=== PATIENT | male | born 1970 | race Caucasian/White ===

== ENCOUNTER → 2020-04-27 | Outpatient (CLI) | payer OTHER, SELFPAY ==
[2020-03-13 11:03] VITALS: BMI 27.1
--- NOTE | 2020-04-27 10:51 | ECHOD_ITS ---
Reason For Study: CHEST PAIN Procedure This was a 2D Doppler, Color Flow transthoracic echocardiogram. The exam was of adequate technical quality. Exam performed in department. Left Ventricle Normal LV size. Left ventricular systolic function is normal. The estimated ejection fraction is 65 %. No evidence for diastolic dysfunction. No regional wall motion abnormalities noted. Right Ventricle Normal RV size. Normal systolic function. Atria Normal left atrium. Normal right atrium. No doppler evidence for ASD. Mitral Valve There is no mitral annular calcification. Normal mitral valve. Trivial mitral valve insufficiency. Tricuspid Valve Normal tricuspid valve. Trivial tricuspid valve insufficiency. Right ventricular systolic pressure estimated to be 29 mmHg. Aortic Valve Trisinus/trileaflet aortic valve. Mild focal aortic valve calcification. Pulmonic Valve The pulmonic valve is not well visualized. Great Vessels Normal sized aortic root. Pericardium/Pleural No pericardial effusion. MMode/2D Measurements & Calculations LVIDd: 3.9 cm IVSd: 1.2 cm Ao root diam: 3.0 cm LVIDs: 2.7 cm LVPWd: 0.90 cm RVDd: 3.6 cm FS: 30.9 % LAV(MOD-bp): 42.5 ml LVAd ap4: 29.6 cm2 SV(MOD-sp4): 52.0 ml LAV(MOD-bp) Indexed: 20.4 ml/m2 EDV(MOD-sp4): 84.4 ml LAV(MOD-sp2): 47.3 ml EDV(sp4-el): 86.8 ml LAV(MOD-sp4): 34.8 ml LVAs ap4: 16.0 cm2 ESV(MOD-sp4): 32.4 ml ESV(sp4-el): 31.2 ml EF(MOD-sp4): 61.6 % EF(sp4-el): 64.1 % SV(sp4-el): 55.7 ml LA A4 area: 15.0 cm2 LA dimension(2D): 3.6 cm RA A4 area: 14.4 cm2 Time Measurements MV dec time: 0.16 sec Doppler Measurements & Calculations MV E max santos: 97.9 cm/sec Lat Peak E' Santos: 14.7 cm/sec Med Peak E' Santos: 10.0 cm/sec MV A max santos: 83.5 cm/sec E/E' lat: 6.7 E/E' med: 9.8 MV E/A: 1.2 Ao V2 max: 148.0 cm/sec LV V1 max: 118.6 cm/sec PA V2 max: 126.3 cm/sec Ao max P.8 mmHg LV V1 max P.6 mmHg TR max santos: 252.9 cm/sec TR max P.6 mmHg Interpretation Summary Left ventricular systolic function is normal. The estimated ejection fraction is 65 %. Trivial mitral valve insufficiency. Trivial tricuspid valve insufficiency. Mild focal aortic valve calcification. Right ventricular systolic pressure estimated to be 29 mmHg. No evidence for diastolic dysfunction. Ordering Physician: Dario Alberto Referring Physician: PAULINE ALTAMIRANO Performed By: Jessenia Christine RDCS
--- NOTE | 2020-04-27 17:29 | STRESSREP ---
Stress Test Report Date: 04-27-2020 Procedure: Exercise tolerance test Indications: Chest pain Consent: Per the patient Procedure: The patient exercised on a Mc protocol for 10 minutes completing stage III and 1 minute of stage IV achieving a peak heart rate of 166 bpm (97 % predicted maximal heart rate) with a peak blood pressure 154/100 mmHg and a peak MET capacity of approximately 11 mET's. The baseline ECG demonstrated normal sinus rhythm. The peak exercise ECG demonstrated no obvious ECG changes. There were no cardiac dysrhythmias pretest, during exercise, or recovery. The functional capacity was considered good. The patient had no complaint of chest discomfort during exercise or recovery. The examination was discontinued secondary to leg discomfort. Impression: 1. Technically adequate (percent predicted maximal heart rate greater than 85%) exercise tolerance test 2. Peak exercise ECG with with no obvious ECG changes 3. There were no cardiac dysrhythmias during exercise or recovery This note was generated with Rently[employer]ation software. It may contain incorrect words, spelling, and punctuation that were not noted in checking the note before signing.
== END | disposition home or self-care (01) ==
LOC: CVS 10:50
PROVIDERS: PCP Nurse Practitioner Family; Referring Provider Internal Medicine Cardiovascular Disease; Visit Provider Internal Medicine Cardiovascular Disease
DX: R07.9 Chest pain, unspecified (principal); R06.00 Dyspnea, unspecified; E78.1 Pure hyperglyceridemia; I10 Essential (primary) hypertension
CPT/HCPCS: 93017; 93306

== ENCOUNTER → 2023-01-16 | Outpatient (CLI) | payer OTHER, SELFPAY ==
--- NOTE | 2023-01-16 10:49 | RAD_ITS ---
STUDY: X-RAY - ABDOMEN/PELVIS REASON FOR EXAM: Male, 52 years old. Left lower quadrant pain. TECHNIQUE: AP supine and upright views of the abdomen and pelvis. COMPARISON: None. FINDINGS: Normal visualized lung bases. There is an unremarkable bowel gas pattern. There is no demonstrated free abdominal air. The visualized liver, spleen and kidneys are grossly normal in size and morphology. 4 mm in diameter calcification projected over the pelvis at approximately the left ureterovesical junction which may represent a ureteral calculus. Phleboliths. Normal visualized osseous structures. RAD/Abd Inc Decub and/or Erect IMPRESSION: 4 mm in diameter probable left distal ureteral calculus. No other abnormality. Electronically Signed: Humza Sauceda, at 13:07 EST ,
[2023-01-17 06:08] LABS: HEPATITIS B SURFACE AG Negative (Negative); Hep C Antibodies Non Reactive (Non Reactive); Hepatitis A IgM Antibody Negative (Negative); Hepatitis B Core AB IgM Negative (Negative)
== END | disposition home or self-care (01) ==
LOC: LAB 10:38
PROVIDERS: PCP Nurse Practitioner Family; Referring Provider Nurse Practitioner Family; Visit Provider Nurse Practitioner Family
DX: R10.32 Left lower quadrant pain (principal); R74.8 Abnormal levels of other serum enzymes
CPT/HCPCS: 36415; 74019; 80074

== ENCOUNTER → 2023-02-13 | Outpatient (CLI) | payer OTHER, SELFPAY ==
--- NOTE | 2023-02-13 07:54 | CT_ITS ---
STUDY: CT ABDOMEN AND PELVIS WITHOUT CONTRAST REASON FOR EXAM: Male, 52 years old. LUQ pain x months, left ureteral stone? RADIATION DOSAGE (If Supplied By Facility): CTDIvol = ( 9.57 ) mGy, DLP = ( 523.65 ) mGycm TECHNIQUE: Transaxial images were obtained from the dome of the diaphragm to the symphysis pubis without oral contrast, and without intravenous contrast. Sagittal and coronal images were reconstructed. Individualized dose optimization techniques were used for this CT. COMPARISON: None. FINDINGS: The visualized lung bases are unremarkable. The visualized portions of the heart are within normal limits. Normal liver. Normal gallbladder and extrahepatic biliary system. Normal spleen. Normal pancreas. Normal bilateral adrenal glands. Normal right kidney. Minimal degree of left hydronephrosis. There is a 4.5 mm calculus in the distal portion of the left ureter just proximal to the ureterovesical junction. There is a small hiatal hernia. Normal small intestine. There are scattered colonic diverticula consistent with diverticulosis. The appendix is visualized and appears normal. Normal abdominal aorta. Normal inferior vena cava. Normal retroperitoneum. Normal urinary bladder. Normal abdominal wall. Normal osseous structures. CT/Abdomen/Pelvis without Cont IMPRESSION: 4.5 mm calculus in the distal portion of the left ureter just proximal to the ureteral vesicle junction. Minimal degree of left hydronephrosis. Sigmoid diverticulosis. Electronically Signed: Maksim Valenzuela MD at 14:47 EDT ,
== END | disposition home or self-care (01) ==
LOC: CT 07:53
PROVIDERS: PCP Nurse Practitioner Family; Referring Provider Nurse Practitioner Adult Health; Visit Provider Nurse Practitioner Adult Health
DX: R10.12 Left upper quadrant pain (principal); N20.1 Calculus of ureter
CPT/HCPCS: 74176

== ENCOUNTER 2023-07-24 05:19 | Day surgery (SDC) | payer OTHER, SELFPAY ==
[2023-07-24] VITALS (7 sets, daily range): BP systolic 87–117; BP diastolic 60–81; PULSE 62–77; RESP 16–18; TEMP 36.1–36.6; O2SAT 94–98; BMI 29.7
[2023-07-24] MEDS: Lactated Ringers 1,000 ML 15 ML IV (06:00)
--- NOTE | 2023-07-24 06:30 | IMM_PTH ---
PATIENT: MIKE CLEANING Jr. LOC: EN U#:[id number] AGE/SX: 52/M ROOM: RE07/24/[address]: Dr. Luis Walls DO : 1970 BED: DIS: 07/24/2023 SPEC #: [id number] RECD: 07/24/23 14:13 STATUS: SHIMON REQ #: [id number] HOA: 07/24/23 06:[address]: Luis Walls DEPT: IMMUNOHISTOCHEMISTRY RECD BY: Funmi Rubio ENTERED: 07/24/23 14:14 SP TYPE: IMMUNO OTHR DR: No Primary Care Phys Tissues: B - Stomach, NOS C - Esophagus, NOS Procedures: H Pylori (initial) P53 (add) MOC-31 (add) KI-67 (initial) PHYSICIAN & INSTITUTION [facility] [id number] SPECIMEN INFORMATION: Tissue Source: B - Gastric antrum, C - Distal esophagus Clinical Info: GERD, history of Mccain's esophagus, LUQ abdominal pain, left ureteral stone Specimen Number: [id number] B & C CPT code: 54133 x2, 39194 x2 METHODOLOGY: Deparaffinized sections of prefer/formalin-fixed tissue or PAP/DQ stained slides are incubated with monoclonal/polyclonal antibodies/oligonucleotide probes. Localization is made via biotin free immunoperoxidase method. Appropriate controls are performed and reacted as expected. Results on target cell population are indicated in the following table: RESULTS: ANTIBODY / CLONE RESULT Block B H Pylori (polyclonal) negative Block C P53 (DO-7) negative, null pattern Ki-67 (30-9) positive, low MOC-31 (4561) positive These tests were developed and their performance characteristics determined by Laboratory. They may not have been cleared or approved by the U.S. Food and Drug Administration. The FDA has determined that such clearance or approval is not necessary. The above immunohistochemical/dualISH markers are ordered and reviewed by the Pathologist. INTERPRETATION: B. Gastric antrum, biopsy: Negative for Helicobacter pylori organisms. C. Distal esophagus, biopsy: No evidence of dysplasia. AM:seymour 07/28/2023
--- NOTE | 2023-07-24 06:30 | EGD_PTH ---
PATIENT: MIKE CLEANING Jr. LOC: EN U#:[id number] AGE/SX: 52/M ROOM: RE07/24/[address]: Dr. Luis Walls DO : 1970 BED: DIS: 07/24/2023 SPEC #: [id number] RECD: 07/24/23 07:56 STATUS: SHIMON MATHEUS #: [id number] HOA: 07/24/23 06:[address]: Luis Walls DEPT: SURGICAL PATHOLOGY RECD BY: Flores Howard ENTERED: 07/24/23 09:08 SP TYPE: EGD BIOPSY OT DR: No Primary Care Phys Tissues: A - Duodenum, NOS B - Gastric mucous membrane C - Esophagus, NOS D - Ileum, NOS E - Cecum, NOS F - Sigmoid colon biopsy Procedures: Special Stain Group II Surgery Specimen Level IV Alcian Blue/PAS (control) HEADER OPERATION: Colonoscopy, EGD (MAC), biopsy PRE-OP DIAGNOSIS: Bloating, GERD, History of Mccain's esophagus, LUQ Abdominal pain, left ureteral stone TISSUE SUBMITTED: A - Duodenum biopsy, B - Gastric antrum biopsy for histo and H. pylori, C - Distal esophagus biopsy, D - Terminal ileum biopsy, E - Cecum biopsy, F - Sigmoid biopsy MICROSCOPIC DIAGNOSIS A. Duodenum, biopsy: No pathologic change. B. Gastric antrum, biopsy: Chronic gastritis. See comment. C. Distal esophagus, biopsy: Gastroesophageal junctional mucosa with mild chronic inflammation. Focal goblet cell metaplasia consistent with Mccain's esophagus. No evidence of dysplasia. Focal changes of reflux. See comment. D. Terminal ileum, biopsy: No pathologic change. E. Cecum, biopsy: Minute mucosal lipoma. F. Sigmoid colon, biopsy: No pathologic change. AM:seymour 07/25/2023 COMMENT B. The results of immunohistochemistry for Helicobacter pylori will be reported separately ([id number]). C. Immunohistochemistry ([id number]) for P53 and Ki-67 will be performed and results will be reported separately. Alcian blue/PAS stain with matched control supports the above diagnosis. MICROSCOPIC DESCRIPTION Slides are reviewed. GROSS DESCRIPTION A - Received in fixative is one container labeled with the patient's name and designated duodenum biopsy. The specimen consists of two irregular fragments of light elizabeth soft tissue that in aggregate measure 0.6 x 0.3 x 0.1 cm. The specimen is totally submitted in one cassette. B - Received in fixative is one container labeled with the patient's name and designated gastric antrum biopsy. The specimen consists of two irregular fragments of light elizabeth soft tissue that in aggregate measure 0.6 x 0.3 x 0.1 cm. The specimen is totally submitted in one cassette. C - Received in fixative is one container labeled with the patient's name and designated distal esophagus biopsy. The specimen consists of multiple irregular fragments of light elizabeth soft tissue that in aggregate measure 1.2 x 0.3 x 0.1 cm. The specimen is totally submitted in one cassette. D - Received in fixative is one container labeled with the patient's name and designated terminal ileum. The specimen consists of multiple irregular fragments of light elizabeth soft tissue that in aggregate measure 1.0 x 0.5 x 0.1 cm. The specimen is totally submitted in one cassette. E - Received in fixative is one container labeled with the patient's name and designated cecum biopsy. The specimen consists of multiple irregular fragments of light elizabeth soft tissue that in aggregate measure 0.6 x 0.3 x 0.1 cm. The specimen is totally submitted in one cassette. F - Received in fixative is one container labeled with the patient's name and designated sigmoid biopsy. The specimen consists of two irregular fragments of light elizabeth soft tissue that in aggregate measure 0.6 x 0.3 x 0.1 cm. The specimen is totally submitted in one cassette. / SJ:rg 07/24/2023 TC:3 CPT: 20358 x6, 89707
--- NOTE | 2023-07-24 06:37 | PCM.HP.BLA ---
History and Physical Date of Admission: 07/24/23 52 M who presents to the office today to establish with GI for bloating, stomach feels very full about an hour after he eats. Poor appetite because of the bloating. Can have bloating after eating, but can also wake up bloated some days. Especially uncomfortable in LUQ, can be worse with palpation. Symptoms began about 2 mos ago. Intermittent nausea, especially in the morning. No vomiting. No dysphagia. Already on omeprazole 40 mg daily since he was diagnosed wtih Mccain's. Used to have BM every day before work, but for approx one month he has had constipation. His has increased the fiber in his diet with some improvement. No diarrhea. No melena or hematochezia. 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 He has had covid multiple times, most recent was 08/2022. He stopped drinking moonshine, not sure that helped with his symptoms. CBD vaping for past few months for pain. He had EGD and coloscopy in 2008. KUB 01/16/23 4 mm stone distal left ureter ROS Const Constitutional: Positive for fatigue and weight change ENT ENT: No difficulty swallowing Cardio Cardiology: Positive for leg pain with exertion Gastro GI: Positive for abdominal pain, bloating, change in bowel habits, constipation, diarrhea and nausea/dyspepsia; No belching, change in stool character, coffee ground emesis, cramping, heartburn, difficulty swallowing, feeling full early, excessive flatus, incontinent of stools, Vomiting blood/hematemesis, Blood in stool, loose stools, Black,tarry stools, pain with swallowing, vomiting or other Musc Musculoskeletal: Positive for stiffness, Arthritis, sciatica, leg pain at night and leg pain with exertion; No joint pain Skin Skin: No yellowing of the eye or itchy eyes Psych Psychiatric: No anxiety and No depression Endo Endocrine: Positive for fatigue and weight change Aller/Imm Allergy/Immunologic: No itchy eyes Charly/Lymp Hematologic/Lymphatic: No easy bleeding or easy bruising Exam Const General: cooperative, healthy appearing and comfortable Nutritional Appearance: overweight Orientation: alert, awake and oriented x3 HENMT Head: normal to inspection Eyes Sclera: sclerae normal Resp Effort & Inspection: normal respiratory effort GI Inspection: normal to inspection Palpation: soft, no hepatosplenomegaly, no masses and tender in the LUQ (palpation caused sense of needing to urinate) General: bladder normal to palpation Skin General: no rashes or lesions noted Neuro Speech: speech normal Gait: normal gait Psych Mood: euthymic mood Quality Reporting Tobacco Screening ([facility]) Smoking Status: Never smoker Assessment and Plan Assessment and Plan (1) Bloating: Status: Chronic Plan: 52 yr old male with bloating, LUQ pain, possible obstructing stone in distal left ureter on KUB. Will get CT KUB to eval for obstructing stone, if so then will refer to urology. If not, then consider gastric emptying study and abd US. EGD and colonoscopy. EGD to eval for Mccain's. Continue PPI. Needs screening colonoscopy. (2) GERD (gastroesophageal reflux disease): Status: Chronic Plan: as above (3) History of Mccain's esophagus: Status: Chronic Plan: as above (4) LUQ abdominal pain: Status: Acute Plan: as above (5) Left ureteral stone: Status: Acute Plan: as above Orders: Orders CT Abd/Pelvis W/WO Contrast Today N20.1 - Calculus of ureter, R10.12 - Left upper quadrant pain I have examined the patient and the H&P has been reviewed. There are no clinical changes since date of exam.
--- NOTE | 2023-07-24 07:13 | OP.EGD_ITS ---
Patient Name: Cachorro Larry Procedure Date: 07/24/2023 6:31 AM Date of : 1970 Age: 52 Procedure: Upper GI endoscopy Indications: Functional Dyspepsia, Suspected esophageal reflux Providers: Luis Walls DO Referring MD: No Primary Care Physician Medicines: Monitored Anesthesia Care Patient Profile: This is a 52 year old male. Refer to note in patient chart for documentation of history and physical. Patient has symptoms of chronic dyspepsia. Complications: No immediate complications. Procedure: Pre-Anesthesia Assessment: - Prior to the procedure, a History and Physical was performed, and patient medications and allergies were reviewed. The patient is competent. The risks and benefits of the procedure and the sedation options and risks were discussed with the patient. All questions were answered and informed consent was obtained. Patient identification and proposed procedure were verified by the physician. Mental Status Examination: normal. Prophylactic Antibiotics: The patient does not require prophylactic antibiotics. Prior Anticoagulants: The patient has taken no anticoagulant or antiplatelet agents. ASA Grade Assessment: II - A patient with mild systemic disease. After reviewing the risks and benefits, the patient was deemed in satisfactory condition to undergo the procedure. The anesthesia plan was to use monitored anesthesia care (MAC). Immediately prior to administration of medications, the patient was re-assessed for adequacy to receive sedatives. The heart rate, respiratory rate, oxygen saturations, blood pressure, adequacy of pulmonary ventilation, and response to care were monitored throughout the procedure. The physical status of the patient was re-assessed after the procedure. After obtaining informed consent, the endoscope was passed under direct vision. Throughout the procedure, the patient's blood pressure, pulse, and oxygen saturations were monitored continuously. The Colonoscope was introduced through the mouth, and advanced to the second part of duodenum. The upper GI endoscopy was accomplished without difficulty. The patient tolerated the procedure well. Scope In: 6:43:34 AM Scope Out: 6:50:02 AM Total Procedure Duration Time 0 hours 6 minutes 28 seconds Findings: There were esophageal mucosal changes suspicious for Mccain's esophagus present in the lower third of the esophagus. The maximum longitudinal extent of these mucosal changes was 2 cm in length. Mucosa was biopsied with a cold forceps for histology in a targeted manner at intervals of 1 cm in the lower third of the esophagus. One specimen bottle was sent to pathology. Verification of patient identification for the specimen was done. Estimated blood loss was minimal. A small hiatal hernia was present. Localized mildly erythematous mucosa without bleeding was found in the gastric antrum. Biopsies were taken with a cold forceps for Helicobacter pylori testing. Verification of patient identification for the specimen was done. Estimated blood loss was minimal. Biopsies were taken with a cold forceps for histology. Verification of patient identification for the specimen was done. Estimated blood loss was minimal. No gross lesions were noted in the second portion of the duodenum. Biopsies were taken with a cold forceps for histology. Verification of patient identification for the specimen was done. Estimated blood loss was minimal. Impression: - Esophageal mucosal changes suspicious for Mccain's esophagus. Biopsied. - Small hiatal hernia. - Erythematous mucosa in the antrum. Biopsied. - No gross lesions in the second portion of the duodenum. Biopsied. Recommendation: - Discharge patient to home. - Resume previous diet. - Continue present medications. - Await pathology results. Procedure Code(s): --- Professional --- 46331, Esophagogastroduodenoscopy, flexible, transoral; with biopsy, single or multiple CPT copyright 2021 [employer]. All rights reserved. The codes documented in this report are preliminary and upon brain picker review may be revised to meet current compliance requirements. Luis Walls DO 07/24/2023 7:13:13 AM This report has been signed electronically. Number of Addenda: 0 Note Initiated On: 07/24/2023 6:31 AM
--- NOTE | 2023-07-24 07:14 | OP.CCLET_ITS ---
07/24/2023 No Primary Care Physician Re : Upper GI endoscopy procedure for Cachorro Larry Dear Care Physician This procedure was performed on July. My impressions and recommendations are as follows: Impressions : - Esophageal mucosal changes suspicious for Mccain's esophagus. Biopsied. - Small hiatal hernia. - Erythematous mucosa in the antrum. Biopsied. - No gross lesions in the second portion of the duodenum. Biopsied. Recommendations : - Discharge patient to home. - Resume previous diet. - Continue present medications. - Await pathology results. My findings are described in the full procedure note, which is enclosed. If I can be of further assistance, please feel free to contact me at . Sincerely, Luis Walls, 07/24/2023 7:13:13 AM This report has been signed electronically.
--- NOTE | 2023-07-24 07:18 | OP.CCLET_ITS ---
07/24/2023 No Primary Care Physician Re : Colonoscopy procedure for Cachorro Larry Dear Care Physician This procedure was performed on July. My impressions and recommendations are as follows: Impressions : - Hemorrhoids found on perianal exam. - Diverticulosis in the recto-sigmoid colon and in the sigmoid colon. - Congested mucosa in the sigmoid colon and in the cecum. Biopsied. - The examined portion of the ileum was normal. Biopsied. Recommendations : - Discharge patient to home. - Resume previous diet. - Continue present medications. - Await pathology results. - Repeat colonoscopy in 10 years for screening purposes. My findings are described in the full procedure note, which is enclosed. If I can be of further assistance, please feel free to contact me at . Sincerely, Luis Walls, 07/24/2023 7:17:25 AM This report has been signed electronically.
--- NOTE | 2023-07-24 07:18 | OP.COLON_ITS ---
Patient Name: Cachorro Larry Procedure Date: 07/24/2023 6:50 AM Date of : 1970 Age: 52 Procedure: Colonoscopy Indications: Screening for colorectal malignant neoplasm Providers: Luis Walls DO Referring MD: No Primary Care Physician Medicines: Monitored Anesthesia Care Patient Profile: This is a 52 year old male. Refer to note in patient chart for documentation of history and physical. Patient has symptoms of chronic dyspepsia. Last Colonoscopy: more than 10 years ago. Complications: No immediate complications. Procedure: Pre-Anesthesia Assessment: - Prior to the procedure, a History and Physical was performed, and patient medications and allergies were reviewed. The patient is competent. The risks and benefits of the procedure and the sedation options and risks were discussed with the patient. All questions were answered and informed consent was obtained. Patient identification and proposed procedure were verified by the physician. Mental Status Examination: normal. Prophylactic Antibiotics: The patient does not require prophylactic antibiotics. Prior Anticoagulants: The patient has taken no anticoagulant or antiplatelet agents. ASA Grade Assessment: II - A patient with mild systemic disease. After reviewing the risks and benefits, the patient was deemed in satisfactory condition to undergo the procedure. The anesthesia plan was to use monitored anesthesia care (MAC). Immediately prior to administration of medications, the patient was re-assessed for adequacy to receive sedatives. The heart rate, respiratory rate, oxygen saturations, blood pressure, adequacy of pulmonary ventilation, and response to care were monitored throughout the procedure. The physical status of the patient was re-assessed after the procedure. After I obtained informed consent, the scope was passed under direct vision. Throughout the procedure, the patient's blood pressure, pulse, and oxygen saturations were monitored continuously. The Colonoscope was introduced through the anus and advanced to the terminal ileum. The colonoscopy was performed without difficulty. The patient tolerated the procedure well. The quality of the bowel preparation was adequate. The terminal ileum, ileocecal valve, appendiceal orifice, and rectum were photographed. Scope In: 6:52:33 AM Scope Withdrawal Time 0 hours 9 minutes 45 seconds Scope Out: 7:03:59 AM Total Procedure Duration Time 0 hours 11 minutes 26 seconds Findings: Hemorrhoids were found on perianal exam. Multiple small-mouthed diverticula were found in the recto-sigmoid colon and sigmoid colon. An area of mildly congested mucosa was found in the sigmoid colon and in the cecum. Biopsies were taken with a cold forceps for histology. Verification of patient identification for the specimen was done. Estimated blood loss was minimal. The terminal ileum appeared normal. Biopsies were taken with a cold forceps for histology. Verification of patient identification for the specimen was done. Estimated blood loss was minimal. Impression: - Hemorrhoids found on perianal exam. - Diverticulosis in the recto-sigmoid colon and in the sigmoid colon. - Congested mucosa in the sigmoid colon and in the cecum. Biopsied. - The examined portion of the ileum was normal. Biopsied. Recommendation: - Discharge patient to home. - Resume previous diet. - Continue present medications. - Await pathology results. - Repeat colonoscopy in 10 years for screening purposes. Procedure Code(s): --- Professional --- 43096, Colonoscopy, flexible; with biopsy, single or multiple CPT copyright 2021 [employer]. All rights reserved. The codes documented in this report are preliminary and upon continuous mining machine operator review may be revised to meet current compliance requirements. Luis Walls DO 07/24/2023 7:17:25 AM This report has been signed electronically. Number of Addenda: 0 Note Initiated On: 07/24/2023 6:50 AM
== END 2023-07-24 07:45 | disposition home or self-care (01) ==
LOC: EN 05:19 → AC 05:20
PROVIDERS: Visit Provider Internal Medicine Gastroenterology
PROC: 0DJD8ZZ Inspection of Lower Intestinal Tract, Via Natural or Artificial Opening Endoscopic (ICD-10-PCS; CPT 45378; principal; 2023-07-24 06:25)
DX: Z12.11 Encounter for screening for malignant neoplasm of colon (principal); K44.9 Diaphragmatic hernia without obstruction or gangrene; K57.30 Diverticulosis of large intestine without perforation or abscess without bleeding; K63.89 Other specified diseases of intestine; K64.4 Residual hemorrhoidal skin tags; K22.70 Barrett's esophagus without dysplasia; Z79.899 Other long term (current) drug therapy; K21.00 Gastro-esophageal reflux disease with esophagitis, without bleeding; N20.1 Calculus of ureter; K29.50 Unspecified chronic gastritis without bleeding; D17.5 Benign lipomatous neoplasm of intra-abdominal organs; I10 Essential (primary) hypertension; E78.1 Pure hyperglyceridemia; Z87.19 Personal history of other diseases of the digestive system
CPT/HCPCS: 45380; 43239; 81002; 88305; 88313; 88341; 88342; J7120; J2405